=== PATIENT | male | born 1955 | race Hispanic/Latino ===

== ENCOUNTER 2019-11-14 00:01 | Inpatient (IN) | payer BC ==
[~2019-11-14] VITALS: Ht 177.8 cm; Wt 87.2 kg
[2019-11-14] VITALS (15 sets, daily range): BP systolic 93–168; BP diastolic 38–87
[2019-11-14] MEDS ORDERED: DOPAMINE HCL 400 MG/D5%-WATER 250 ML IV ONE (02:25)
[2019-11-14] MEDS ORDERED: DOPAMINE HCL 400 MG/D5%-WATER 250 ML IV PRN (02:30)
[2019-11-14] MEDS ORDERED: MORPHINE SULFATE 2 MG/ML 1ML SYG IVP PRN (03:00)
[2019-11-14] MEDS ORDERED: DEXTROSE 50%-WATER 50 ML DISP.SYRIN IV PRN ×2 (03:15→14:45)
[2019-11-14] MEDS ORDERED: GLUCAGON 1MG KIT 1 MG ML IM PRN ×2 (03:15→14:45)
[2019-11-14 03:41] LABS: BASOPHILS % (AUTO) 0.2 % (0.0-5.0); EOSINOPHILS % (AUTO) 0.2 % (0.0-8.0); LYMPHOCYTES % (AUTO) 7.1 % (21.0-51.0); MEAN CORPUSCULAR HEMOGLOBIN 33.5 pg (27.0-33.0); MEAN CORPUSCULAR HGB CONC 31.7 g/dL (32.0-36.0); MEAN CORPUSCULAR VOLUME 105.6 fL (79-99); MONOCYTES % (AUTO) 6.4 % (3.0-13.0); NEUTROPHILS % (AUTO) 85.5 % (40.0-77.0); NUCLEATED RED BLOOD CELLS 0.8 % (0.0-0.19); PLATELET COUNT (AUTO) 138 K/uL (130-400); RED BLOOD CELL COUNT(AUTO) 2.84 MIL/uL (4.50-6.20); RED CELL DISTRIBUTION WIDTH 14.6 % (11.0-15.5); WHITE BLOOD COUNT (AUTO) 8.4 K/uL (4.8-10.8)
[2019-11-14] MEDS ORDERED: HEPARIN 25000 UNITS/250 ML D5W 250 ML IV SCH (03:45)
[2019-11-14] MEDS ORDERED: AMLO2.5T2 PO (03:48)
[2019-11-14] MEDS ORDERED: METO-408 PO (03:48)
[2019-11-14] MEDS ORDERED: OMEG-125 PO (03:48)
[2019-11-14] MEDS ORDERED: SITA25TA5 PO (03:48)
[2019-11-14] MEDS ORDERED: PHOSLOC PO (03:48)
[2019-11-14 03:54] LABS: HEMOGLOBIN A1C 6.6 % (4.0-6.0)
[2019-11-14 03:55] LABS: INR 1.23 (0.85-1.15); PARTIAL THROMBOPLASTIN TIME 33.3 SEC (26.3-35.5); PROTHROMBIN TIME 13.2 SEC (9.6-11.6)
[2019-11-14 04:26] LABS: ALBUMIN 3.1 g/dL (3.5-5.0); BILIRUBIN,TOTAL 0.5 mg/dL (0.2-1.0)
[2019-11-14 04:34] LABS: CREATININE 9.9 mg/dL (0.5-1.5)
[2019-11-14 04:35] LABS: TROPONIN I 19.53 ng/mL (0.00-0.06)
[2019-11-14] MEDS: INSULIN HUMULIN R 100 UNIT/ML 3ML SQ SCH ×3 (06:14→21:00)
[2019-11-14] MEDS ORDERED: SODIUM POLYSTYRENE SULFONATE 15 GM/60 ML ML ONE (06:39)
[2019-11-14] MEDS ORDERED: SODIUM POLYSTYRENE SULFONATE 15 GM/60 ML ML RC SCH (06:45)
[2019-11-14] MEDS ORDERED: EPOETIN ALFA 10,000 UNIT/ML VIAL SQ SCH (08:15)
[2019-11-14] MEDS ORDERED: CALCIUM GLUCONATE 1 GM/10 ML VIAL IV SCH (08:15)
[2019-11-14] MEDS ORDERED: CALCIUM GLUCONATE 1 GM in SODIUM CHLORIDE 0.9% 50 ML IV SCH (08:30)
[2019-11-14 09:26] LABS: BILIRUBIN,DIRECT 0.2 mg/dL (0.0-0.3); BILIRUBIN,TOTAL 0.4 mg/dL (0.2-1.0); TOTAL PROTEIN, SERUM 6.6 g/dL (6.0-8.3)
[2019-11-14 09:46] LABS: % IRON SATURATION 41.1 % (30-44)
[2019-11-14] MEDS ORDERED: SODIUM CHLORIDE 0.9% 500ML 500 ML IV SCH (09:49)
[2019-11-14] MEDS: FOLIC ACID 1 MG TABLET PO SCH (10:42)
[2019-11-14] MEDS: FAMOTIDINE/PF 20 MG/2 ML VIAL IV SCH (10:42)
[2019-11-14] MEDS: THIAMINE HCL 100 MG TABLET PO SCH (10:42)
[2019-11-14 11:58] LABS: HEMATOCRIT 29.9 % (42-54); MEAN CORPUSCULAR HEMOGLOBIN 33.8 pg (27.0-33.0); MEAN CORPUSCULAR HGB CONC 32.1 g/dL (32.0-36.0); MEAN CORPUSCULAR VOLUME 105.3 fL (79-99); NUCLEATED RED BLOOD CELLS 0.7 % (0.0-0.19); RED BLOOD CELL COUNT(AUTO) 2.84 MIL/uL (4.50-6.20); RED CELL DISTRIBUTION WIDTH 14.6 % (11.0-15.5); WHITE BLOOD COUNT (AUTO) 8.7 K/uL (4.8-10.8)
[2019-11-14 12:11] LABS: CREATININE 7.7 mg/dL (0.5-1.5); POTASSIUM 4.2 mmol/L (3.5-5.1)
[2019-11-14 12:12] LABS: INR 1.18 (0.85-1.15); PARTIAL THROMBOPLASTIN TIME 28.8 SEC (26.3-35.5); PROTHROMBIN TIME 12.7 SEC (9.6-11.6)
--- NOTE | 2019-11-14 13:30 | NUR ---
PATIENT TO DESIGN DRAFTSMAN PATIENT STABLE ON DOPAMINE DRIP @ 2 MCG/KG/MIN WITH HR 38-40 AND BP STABLE 120'S. PATIENT AWAKE ALERT AND ORIENTED STATING NO LONGER FEELING NAUSEATED AT THIS TIME
[2019-11-14] MEDS ORDERED: HEPARIN SODIUM 1000UNIT/ML 10ML VIAL ONE (13:58)
[2019-11-14] MEDS ORDERED: LIDOCAINE HCL 2% 20ML ONE (13:58)
[2019-11-14] MEDS ORDERED: IOHEXOL 350 MG/ML 100ML INFUS..BTL IV ONE (13:58)
[2019-11-14] MEDS ORDERED: IOHEXOL-350 50ML VIAL IV ONE (13:58)
[2019-11-14] MEDS ORDERED: LIDOCAINE HCL 1% MDV 50ML VIAL ONE (14:41)
[2019-11-14] MEDS ORDERED: BUPIVACAINE/PF 0.25% 30ML VIAL IJ ONE (14:41)
[2019-11-14] MEDS ORDERED: VANCOMYCIN 1GM+NS 250ML 500 ML IV ONE (14:41)
[2019-11-14] MEDS ORDERED: MEPERIDINE-PF 50 MG/ML SYG ONE (14:42)
[2019-11-14] MEDS ORDERED: MIDAZOLAM HCL 1 MG/ML 2ML VIAL ONE ×2 (14:42→15:01)
[2019-11-14] MEDS ORDERED: ALTEPLASE 2 MG/VIAL IVCATH ONE (14:45)
[2019-11-14] MEDS ORDERED: IODIXANOL 320 MG/ML 100 ML VIAL ONE (15:02)
--- NOTE | 2019-11-14 15:44 | NUR ---
DEFERRING IA AT THIS TIME PATIENT TO CAR RENTAL AGENCY MANAGER, ON DOPA MINE DRIP. CM DEFERRED CALLING FAMILY FOR INTIAL ASSESSMENT WHILE PATINET CRITICALLY ILL, WILL DEFER UNTIL MORE STABLE, Addendum: 11/14/19 at 1545 by AUTUMN SMITH RN CM Amended: Links added.
--- NOTE | 2019-11-14 16:55 | NUR ---
PATIENT REMAINS IN LOCKSTITCH POCKET SETTER. PENDING REPORT AND RETURN OF PATIENT
[2019-11-14] MEDS ORDERED: TRAMADOL HCL 50 MG TABLET PO PRN (17:00)
[2019-11-14 21:02] LABS: APPEARANCE BODY FLUID SLIGHTLY CLOUDY (CLEAR); COLOR,BODY FLUID YELLOW (LT YELLOW); SPECIMENTYPE,BODY FLUID PLEURAL; TOTAL VOLUME,BODY FLUID 1221 mL
[2019-11-14 21:03] LABS: BODY FLUID WBC 44 /cu. mm.
[2019-11-14 21:04] LABS: BODY FLUID RBC 1510 /cu. mm.
[2019-11-14 22:20] LABS: BF LYMPHOCYTE 69 %; BF MONOCYTE 2 %
[2019-11-14] MEDS ORDERED: CALCIUM CHLORIDE 100 MG/ML 10 ML SYG IVP ONE (23:43)
[2019-11-14] MEDS ORDERED: ETOMIDATE 2 MG/ML 10 ML VIAL IVP ONE (23:43)
[2019-11-14] MEDS ORDERED: ROCURONIUM BROMIDE 10MG/1ML 5ML VL IV ONE (23:43)
[2019-11-14] MEDS ORDERED: EPINEPHRINE 0.1 MG/ML 10 ML SYG IVP ONE ×2 (23:43)
[2019-11-14] MEDS ORDERED: SODIUM BICARB 8.4% 50ML SYRINGE IVP ONE (23:43)
[2019-11-14] MEDS ORDERED: NOREPINEPHRINE BITARTRATE 1 MG/1 ML ML IV ONE (23:43)
[2019-11-15 03:00] VITALS: BP 157/72
[2019-11-15 04:35] LABS: HEMATOCRIT 27.4 % (42-54); MEAN CORPUSCULAR HEMOGLOBIN 33.7 pg (27.0-33.0); MEAN CORPUSCULAR HGB CONC 32.1 g/dL (32.0-36.0); NUCLEATED RED BLOOD CELLS 0.9 % (0.0-0.19); PLATELET COUNT (AUTO) 108 K/uL (130-400); RED BLOOD CELL COUNT(AUTO) 2.61 MIL/uL (4.50-6.20); RED CELL DISTRIBUTION WIDTH 14.4 % (11.0-15.5); WHITE BLOOD COUNT (AUTO) 5.8 K/uL (4.8-10.8)
[2019-11-15 04:54] LABS: LYMPHOCYTES % (MANUAL) 12 % (22-44); MAN.DIFF COMMENT-IMPRESSION MANUAL DIFFERENTIAL; MONOCYTES % (MANUAL) 12 % (2-9); PLATELET MORPHOLOGY COMMENT SLIGHTLY DECREASED; SEGMENTED NEUTROPHILS % 76 % (40-70)
[2019-11-15 05:39] LABS: PHOSPHORUS 4.1 mg/dL (2.5-4.9); POTASSIUM 4.4 mmol/L (3.5-5.1)
[2019-11-15 05:42] LABS: CREATININE 10.7 mg/dL (0.5-1.5)
[2019-11-15] MEDS: INSULIN HUMULIN R 100 UNIT/ML 3ML SQ SCH ×4 (06:14→21:00)
[2019-11-15 08:00] VITALS: BP 115/64
[2019-11-15 08:10] LABS: HEPATITIS Bs ANTIGEN SCREEN P Negative (Negative)
[2019-11-15] MEDS: THIAMINE HCL 100 MG TABLET PO SCH (09:00)
[2019-11-15] MEDS: ASPIRIN 81MG TAB.CHEW PO SCH (09:00)
[2019-11-15] MEDS: LOSARTAN 50 MG TABLET PO SCH (09:00)
[2019-11-15] MEDS: FAMOTIDINE/PF 20 MG/2 ML VIAL IV SCH (09:00)
[2019-11-15] MEDS: FOLIC ACID 1 MG TABLET PO SCH (09:00)
[2019-11-15] MEDS: ATORVASTATIN CALCIUM 40 MG TABLET PO SCH (09:00)
[2019-11-15] MEDS: METOPROLOL SUCCINATE 50 MG TAB.SR.24H PO SCH (09:00)
[2019-11-15 11:43] VITALS: BP 134/71
[2019-11-15 16:00] VITALS: BP 132/67
--- NOTE | 2019-11-15 18:38 | NUR ---
RIGHT FEMORAL TRIALYSIS CATHETER REMOVED ORDERED BY DR. JASSO. PATIENT TOLERATED PROCEDURE.
[2019-11-15 19:00] VITALS: BP 143/78
--- NOTE | 2019-11-15 21:00 | NUR ---
PT IS STABLE. AA03. HAS DIFFICULTY SEEING FROM RIGHT EYE. DIALYSIS PT. MONITORING BS LEVELS. PT ABLE TO AMBULATE.
[2019-11-15 23:00] VITALS: BP 129/65
[2019-11-16 03:00] VITALS: BP 142/73
[2019-11-16 04:42] LABS: BASOPHILS % (AUTO) 0.2 % (0.0-5.0); EOSINOPHILS % (AUTO) 2.2 % (0.0-8.0); HEMATOCRIT 23.9 % (42-54); LYMPHOCYTES % (AUTO) 13.9 % (21.0-51.0); MEAN CORPUSCULAR HEMOGLOBIN 32.6 pg (27.0-33.0); MEAN CORPUSCULAR HGB CONC 31.8 g/dL (32.0-36.0); MEAN CORPUSCULAR VOLUME 102.6 fL (79-99); MONOCYTES % (AUTO) 8.2 % (3.0-13.0); NEUTROPHILS % (AUTO) 74.8 % (40.0-77.0); NUCLEATED RED BLOOD CELLS 0.4 % (0.0-0.19); PLATELET COUNT (AUTO) 113 K/uL (130-400); RED BLOOD CELL COUNT(AUTO) 2.33 MIL/uL (4.50-6.20); RED CELL DISTRIBUTION WIDTH 14.6 % (11.0-15.5); WHITE BLOOD COUNT (AUTO) 5.5 K/uL (4.8-10.8)
[2019-11-16 04:50] LABS: POTASSIUM 4.1 mmol/L (3.5-5.1)
[2019-11-16 04:52] LABS: CREATININE 12.5 mg/dL (0.5-1.5)
[2019-11-16] MEDS: INSULIN HUMULIN R 100 UNIT/ML 3ML SQ SCH ×4 (06:58→20:53)
[2019-11-16 07:00] VITALS: BP_SYST 153; BP_SYST 171; BP_DIAS 66; BP_DIAS 81
--- NOTE | 2019-11-16 08:45 | NUR ---
AM ASSESSMENT PT LAYING IN BED, HOB ELEVATED 30 DEGREES, WATCHING TV. SPA SPEAKING. A/O X 3. NO SOB. NO DISTRESS NOTED. DENIES CHEST PAIN OR DISCOMFORT. DENIES PALPITATIONS. DENIES INCISIONAL PAIN. TELE: PACED. LT UPPER CHEST INCISION, TELFA & OPSITE. DRY & INTACT. NO DRAINAGE NOTED. SLING TO LT ARM. ARM PRECAUTIONS REINFORCED. DENIES N/V AND/OR DIARRHEA. HD TTS. RT AV-FISTULA, NO BRUIT/NO THRILL. NO HD ACCESS @ THIS TIME. PT TO HAVE DECLOT TO RT AV FISTULA TMRW. UP W/ASSISTANCE. INSTRUCTED TO CALL FOR ASSISTANCE. CALL VANI W/IN REACH.
[2019-11-16] MEDS ORDERED: FAMOTIDINE 20MG TAB 20 MG TAB PO SCH (09:45)
[2019-11-16] MEDS: ATORVASTATIN CALCIUM 40 MG TABLET PO SCH (10:21)
[2019-11-16] MEDS: ASPIRIN 81MG TAB.CHEW PO SCH (10:22)
[2019-11-16] MEDS: METOPROLOL SUCCINATE 50 MG TAB.SR.24H PO SCH (10:22)
[2019-11-16] MEDS: FOLIC ACID 1 MG TABLET PO SCH (10:24)
[2019-11-16] MEDS: LOSARTAN 50 MG TABLET PO SCH (10:24)
[2019-11-16] MEDS: THIAMINE HCL 100 MG TABLET PO SCH (10:24)
[2019-11-16 11:00] VITALS: BP 142/75
[2019-11-16] MEDS: FAMOTIDINE 20MG TAB 20 MG TAB PO SCH (13:00)
--- NOTE | 2019-11-16 14:46 | NUR ---
INITIAL MET W PATIENT AT BEDSIDE, STATES LIVES W SON, DAUGHTER IN LAW, SPOUSE, GOES TO HD CLINIC IN [place], BUT HE CANNOT REMEMBER NAME OF CLINIC; MD IS DR. BERTRAND, HAS BEEN ON HD X2 YEARS- NO DME, INDP OF [facility], DCP HOME, SON SAMUEL WHO PROVIDES ALL HIS TRANSPORT WILL CRIMPING MACHINE OPERATOR FOR METAL. Addendum: 11/16/19 at 1451 by AUTUMN SMITH RN CM Amended: Links added.
[2019-11-16 16:00] VITALS: BP 122/64
[2019-11-16 20:00] VITALS: BP 152/84
--- NOTE | 2019-11-16 21:00 | NUR ---
PT AICD DRESSING CHANGED, NO DISTRESS NOTED. ABLE TO AMBULATE. CONSENT FOR FISTULOGRAM WITH DECLOT IN CHART. PT AWARE OF PROCEDURE. LABS FOR THE AM.
[2019-11-17] VITALS (10 sets, daily range): BP systolic 75–147; BP diastolic 47–84
[2019-11-17 04:57] LABS: BASOPHILS % (AUTO) 0.4 % (0.0-5.0); HEMATOCRIT 22.8 % (42-54); MEAN CORPUSCULAR HEMOGLOBIN 33.3 pg (27.0-33.0); MEAN CORPUSCULAR HGB CONC 32.5 g/dL (32.0-36.0); MEAN CORPUSCULAR VOLUME 102.7 fL (79-99); MONOCYTES % (AUTO) 9.9 % (3.0-13.0); NEUTROPHILS % (AUTO) 69.1 % (40.0-77.0); PLATELET COUNT (AUTO) 114 K/uL (130-400); RED BLOOD CELL COUNT(AUTO) 2.22 MIL/uL (4.50-6.20); RED CELL DISTRIBUTION WIDTH 15.2 % (11.0-15.5); WHITE BLOOD COUNT (AUTO) 5.3 K/uL (4.8-10.8)
--- NOTE | 2019-11-17 05:00 | NUR ---
NEW IV STARTED TO LEFT FOREARM. BY YARA GAXIOLA. PREPPED FOR PROCEDURE TODAY, FISTULOGRAM WITH DECLOT. DIALYSIS PT.
[2019-11-17 05:12] LABS: INR 1.06 (0.85-1.15); PROTHROMBIN TIME 11.4 SEC (9.6-11.6)
[2019-11-17 05:21] LABS: ALBUMIN 2.3 g/dL (3.5-5.0); BILIRUBIN,TOTAL 0.4 mg/dL (0.2-1.0); POTASSIUM 4.5 mmol/L (3.5-5.1); TOTAL PROTEIN, SERUM 5.8 g/dL (6.0-8.3)
[2019-11-17] MEDS: INSULIN HUMULIN R 100 UNIT/ML 3ML SQ SCH ×4 (06:23→20:05)
--- NOTE | 2019-11-17 07:30 | NUR ---
AM ASSESSMENT PT SITTING IN CHAIR, WATCHING TV. A/O X 3. NO SOB. NO DISTRESS NOTED. DENIES CHEST PAIN OR DISCOMFORT. DENIES PALPITATIONS. DENIES INCISIONAL PAIN. TELE: PACED. LT UPPER CHEST DSG DRY & INTACT. NO DRAINAGE, NO HEMATOMA NOTED. NPO STATUS REINFORCED. PT TO HAVE DECLOT OF RT AV FISTULA. HD PLANNED FOR TODAY. UP W/ASSISTANCE. INSTRUCTED TO CALL FOR ASSISTANCE. CALL VANI W/IN REACH.
[2019-11-17] MEDS: FAMOTIDINE 20MG TAB 20 MG TAB PO SCH (09:00)
[2019-11-17] MEDS: THIAMINE HCL 100 MG TABLET PO SCH (09:00)
[2019-11-17] MEDS: ATORVASTATIN CALCIUM 40 MG TABLET PO SCH (09:00)
[2019-11-17] MEDS: ASPIRIN 81MG TAB.CHEW PO SCH (09:00)
[2019-11-17] MEDS: FOLIC ACID 1 MG TABLET PO SCH (09:00)
[2019-11-17] MEDS ORDERED: EPOETIN ALFA 10,000 UNIT/ML VIAL SQ SCH (09:45)
[2019-11-17] MEDS ORDERED: FENTANYL CITRATE PF 50 MCG/1 ML 2ML VIAL ONE (11:40)
[2019-11-17] MEDS ORDERED: IODIXANOL 320 MG/ML 100 ML VIAL ONE (11:40)
[2019-11-17] MEDS ORDERED: LIDOCAINE HCL 1% MDV 50ML VIAL ONE (11:40)
[2019-11-17] MEDS ORDERED: HEPARIN SODIUM 1000UNIT/ML 10ML VIAL ONE (11:40)
--- NOTE | 2019-11-17 13:13 | NUR ---
STATUS PT BACK FROM PROCUREMENT ANALYST VIA BED, S/P RT AV FISTULS DECLOT. (+) THRILL/(+) BRUIT. DSG DRY & INTACT. NO BLEEDING, NO DRAINAGE NOTED. DENIES INCISIONAL PAIN. PT MAY RESUME DIET. PT TO HAVE HD TODAY.
[2019-11-17] MEDS ORDERED: MIDODRINE HCL 5 MG TABLET PO SCH (14:45)
--- NOTE | 2019-11-17 14:45 | NUR ---
HYPOTENSION PT'S HYPOTENSIVE POST DCLOT OF RT AV FISTULA. BP 80s/60s. DR OWEN JASSO NOTIFIED BY HD NURSE, DELMI. ORDERS RECEIVED FOR MIDODRINE 10 MG PO ONCE. ORDER ENTERED. PT TO RECEIVE HD PLANNED & IF TOLERATED BY PT.
[2019-11-17] MEDS ORDERED: SODIUM CHLORIDE 0.9% 1000ML 1,000 ML IV PRN (15:30)
[2019-11-17] MEDS ORDERED: HEPARIN SODIUM 5000UNIT/ML 1ML VIAL IJ PRN ×2 (15:30)
[2019-11-17] MEDS ORDERED: NITROGLYCERIN 0.4 MG SL TAB SL PRN (15:30)
[2019-11-17] MEDS ORDERED: LIDOCAINE HCL-MPF 1% 2ML VIAL IJ PRN (15:30)
[2019-11-17] MEDS ORDERED: 0.9% SODIUM CHLORIDE 1000 ML IV BAG IV PRN (15:30)
[2019-11-17] MEDS ORDERED: ACETAMINOPHEN 325 MG TAB PO PRN (15:30)
[2019-11-17] MEDS: LOSARTAN 50 MG TABLET PO SCH (16:31)
[2019-11-17] MEDS: METOPROLOL SUCCINATE 50 MG TAB.SR.24H PO SCH (16:31)
[2019-11-17] MEDS ORDERED: ATORVASTATIN CALCIUM 40 MG TABLET PO SCH (21:00)
[2019-11-17] MEDS: ONDANSETRON HCL 4 MG/2 ML VIAL IV PRN (23:26)
[2019-11-18] VITALS (28 sets, daily range): BP systolic 60–112; BP diastolic 17–56
[2019-11-18 04:46] LABS: BASOPHILS % (AUTO) 0.2 % (0.0-5.0); EOSINOPHILS % (AUTO) 0.9 % (0.0-8.0); HEMATOCRIT 23.5 % (42-54); LYMPHOCYTES % (AUTO) 13.4 % (21.0-51.0); MEAN CORPUSCULAR HEMOGLOBIN 33.2 pg (27.0-33.0); MEAN CORPUSCULAR HGB CONC 31.9 g/dL (32.0-36.0); MONOCYTES % (AUTO) 10.9 % (3.0-13.0); NEUTROPHILS % (AUTO) 73.6 % (40.0-77.0); PLATELET COUNT (AUTO) 115 K/uL (130-400); RED BLOOD CELL COUNT(AUTO) 2.26 MIL/uL (4.50-6.20); RED CELL DISTRIBUTION WIDTH 15.6 % (11.0-15.5); WHITE BLOOD COUNT (AUTO) 5.8 K/uL (4.8-10.8)
[2019-11-18 05:12] LABS: ALBUMIN 2.5 g/dL (3.5-5.0); BILIRUBIN,TOTAL 0.5 mg/dL (0.2-1.0); POTASSIUM 4.4 mmol/L (3.5-5.1); TOTAL PROTEIN, SERUM 6.2 g/dL (6.0-8.3)
[2019-11-18 05:15] LABS: CREATININE 11.3 mg/dL (0.5-1.5)
[2019-11-18] MEDS: INSULIN HUMULIN R 100 UNIT/ML 3ML SQ SCH ×3 (06:18→16:30)
--- NOTE | 2019-11-18 08:25 | NUR ---
STATUS PT C/O OF NAUSEA. IV ZOFRAN GIVEN. V/S STABLE. PT TO RECEIVE HD TODAY.
[2019-11-18] MEDS: ONDANSETRON HCL 4 MG/2 ML VIAL IV PRN ×2 (08:28→15:54)
[2019-11-18] MEDS: LOSARTAN 50 MG TABLET PO SCH (09:00)
[2019-11-18] MEDS: METOPROLOL SUCCINATE 50 MG TAB.SR.24H PO SCH (09:00)
[2019-11-18] MEDS: THIAMINE HCL 100 MG TABLET PO SCH (09:00)
[2019-11-18] MEDS: ASPIRIN 81MG TAB.CHEW PO SCH (09:00)
[2019-11-18] MEDS: FAMOTIDINE 20MG TAB 20 MG TAB PO SCH (09:00)
[2019-11-18] MEDS: FOLIC ACID 1 MG TABLET PO SCH (09:00)
--- NOTE | 2019-11-18 09:00 | NUR ---
MD NOTIFICATION DR OWEN JASSO NOTIFIED OF PT'S HYPOTENSION PRIOR TO HD. ORDER FOR MIDODRINE 5 MG PO ONCE RECEIVED & GIVEN.
[2019-11-18] MEDS ORDERED: MIDODRINE HCL 5 MG TABLET PO SCH ×2 (09:35→11:30)
--- NOTE | 2019-11-18 11:05 | NUR ---
MD NOTIFICATION INFORMED BY HD NURSE, PT CONTINUES TO HAVE HYPOTENSION. DR Rafael JASSO NOTIFIED. ORDERS FOR EKG, TROPONIN & 2nd DOSE OF MIDODRINE 5 MG PO NOW RECEIVED. MIDODRINE PO GIVEN TO PT.
[2019-11-18] MEDS ORDERED: ALBUMIN (HUMAN) 25% 100 ML IV SCH (11:15)
[2019-11-18 12:00] LABS: TROPONIN I 4.78 ng/mL (0.00-0.06)
--- NOTE | 2019-11-18 12:07 | NUR ---
MD NOTIFICATION DR OWEN JASSO NOTIFIED PT CONTINUES TO BE HYPOTENSIVE. HD TO HELD FOR NOW. PT TO BE TRANSFERRED TO ICU.
--- NOTE | 2019-11-18 12:08 | NUR ---
MD NOTIFICATION DR FAGAN NOTIFIED & UPDATED OF PT'S CURRENT STATE OF HYPOTENSION & DR OWEN JASSO'S ORDERS. ORDERS RECEIVED & ENTERED. 2D BEAUTY CONSULTANT NOTIFIED STAT 2D ECHO HAS BEEN ORDERED.
--- NOTE | 2019-11-18 12:15 | NUR ---
MD NOTIFICATION DR PERES UPDATED ON PT'S STATUS & CURRENT PLAN OF CARE.
--- NOTE | 2019-11-18 12:55 | NUR ---
CARDIOLOGY CONSULT [place] BAI NOTIFIED OF RECONSULT [facility]. PT STATUS & PLAN OF CARE INFO GIVEN. ORDER FOR STAT CXR RECEIVED & ENTERED. INFORMED [place] BAI 2D ECHO CURRENTLY BEING DONE. [place] BAI TO NOTIFY DR Rolando DONATO OF CONSULT.
--- NOTE | 2019-11-18 13:07 | NUR ---
MD VISIT DR Rolando DONATO IN TO SEE PT. 2D ECHO JUST COMPLETED. DR Rolando DONATO REVIEWING PREVIOUS & CURRENT 2D ECHO. CXR BEING DONE @ THIS TIME. VENDING TECHNICIAN REPORT & FILMS REVIEWED BY .
--- NOTE | 2019-11-18 13:20 | NUR ---
MD VISIT ORDER RECEIVED FOR CT ANGIO OF CHEST. CONSENT FOR CT SCAN DONE @ THIS TIME. PT'S CURRENT IV ACCES 22G. IV INFILTRATED @ THIS TIME. PT ON LY HAS LT ARM AVAIL OR IV ACCESS. RT AV FISTULA, SUNNY. MULTIPLE ATTEMPT @ IV 20G MADE. VEINS LOCATED, BLOOD RETURN PRESENT, WHEN CATHETER ADVANCE VEIN BLOWS. PT STATES HIS VEINS ARE HARD TO GET AND ALWAYS GO BAD. CT SCAN STAFF NOTIFIED CONSENT OR CT ANGIO OBTAINED, BUT NO IV ACCES AVAIL @ THIS TIME FOR PROCEDURE. IV INSERTION BEING ATTEMPTED.
[2019-11-18] MEDS ORDERED: IOHEXOL-350 75 ML VIAL IV ONE (15:37)
--- NOTE | 2019-11-18 15:37 | NUR ---
IV INSERTION 20G LT INNER FA INSERTED BY [place] DUCKWORTH RN. (+) BLOOD RETURN. CT SCAN NOTIFIED IV ACCESS IN PLACE FOR CT SCAN.
--- NOTE | 2019-11-18 16:20 | NUR ---
CT ANGIO PT TAKEN TO CT ANGIO VIA BED BY STAFF X 2 (TRANSPORT & RN). PT TRANSFERRED TO CT SCAN BED. WHEN CHECKING IV ACCESS FOR PATENCY, IV ACCES INFILTRATED. PT TO RETURN TO 428 & MD NOTIFIED OF CURRENT STATUS.
--- NOTE | 2019-11-18 16:35 | NUR ---
MD NOTIFICATION DR FAGAN NOTIFIED OF PT'S CURRENT STATUS. PT NOW EXPERIENCING CHEST PAIN. MD INFORMED NO IV ACCES AVAIL & PENDING CT ANGIO OF CHEST TO R/U PE. MD TO REVIEW PT'S CHART AND COME UP TO PT'S ROOM. ORDER RECEIVED FOR CENTRAL JAZMINE INSERTION. ORDER ENTERED. CONSENT OBTAINED FROM PT. SUPPLIES GATHERED FOR CENTRAL LINE INSERTION.
[2019-11-18] MEDS ORDERED: MIDAZOLAM HCL 1 MG/ML 2ML VIAL IVP ONE (17:30)
[2019-11-18] MEDS ORDERED: FENTANYL CITRATE PF 50 MCG/1 ML 2ML VIAL IVP ONE (17:30)
--- NOTE | 2019-11-18 17:40 | NUR ---
CENTRAL LINE DR FAGAN @ BEDSIDE. REQUESTING FENTANYL IVP & VERSED IVP. ORDERS ENTERED & DISPENSED, CURRENTLY @ BEDSIDE. REMINDED MD, PT CURRENTLY HAS NO IV ACCESS. MD ATTEMPTED TO INSERT CENTRAL LINE. 1st ATTEMPT @ RT IJ. UNABLE TO INSET CENTRAL LINE DUE TO STENOSIS. LT IJ PREPPED ATTEMPT MADE TO INSERT CENTRAL LINE. MD ONLY ABLE TO INSERT CATHETER. PER MD CATHETER TO BE KEPT IN PLACE & USED TO HAVE CT ANGIO OF CHEST DONE. CATHETER TO BE USED FOR IV ACCESS TONIGHT. ORDER RECEIVED & ENTERED TO HAVE PICC LINE INSERTED TOMORROW. DELI WORKER NOTIFIED. CT SCAN NOTIFIED PT HAS IV ACCES AND CT ANGIO OF CHEST TO BE DONE NOW.
[2019-11-18] MEDS ORDERED: LIDOCAINE HCL 1% 20 ML VIAL INJ SCH (18:04)
--- NOTE | 2019-11-18 18:20 | NUR ---
CT ANGIO CHEST PT TAKEN TO HAVE CT ANGIO OF CHEST DONE. CT ANGIO OF CHEST PERFORMED & BE READ BY RADIOLOGIST. PT TOLERATED CT SCAN. PT RESTLESS, C/O CHEST PAIN, AND COUGHING. PT CURRENTLY ON O2 N @ 2L. PT TRANSFERRED BACK TO RM 428. NOTIFIED OF PT'S STATUS.
--- NOTE | 2019-11-18 19:05 | NUR ---
CT ANGIO RESULTS NOTIFIED BY CT SCAN STAFF CT ANGIO RESULTS. PT (+) FOR PULMONARY EMBOLI. DR FAGAN NOTIFIED OF CT ANGIO CHEST RESULTS.
--- NOTE | 2019-11-18 19:38 | NUR ---
MD NOTIFICATION CALL BACK RECEIVED FROM DR FAGAN. ORDER FOR HEPARIN GTT RECEIVED. PT CARE ALREADY ENDORSED TO Oscar WEINSTEIN RN. INFORMED RN OF NEW ORDERS GIVEN BY DR FAGAN.
--- NOTE | 2019-11-18 20:15 | NUR ---
Transfer to ICU Patient transfer to ICU, report given to Jas ICU nurse. Patient transfer via stretcher with monitor and 2 nurses. Vitals BP93/53, HR 60, SPO2 97%.
--- NOTE | 2019-11-18 20:40 | NUR ---
PT RECEIVED FROM 4TH FLOOR DUE TO HYPOTENSION AND CT RESULTS. PT IS RESTLESS ,DIAPHORETIC, WITH SYSTOLIC BP IN 70'S AND NO IV ACCESS. DR. FAGAN NOTIFIED OF PATIENT'S CONDITION. INFORMED PICC LINE NURSE WAS CALLED AND ER WAS NOTIFIED FOR IO ACCESS. PT BECOMES UNRESPONSIVE WITH AGONAL BREATHING. CODE STROKE AND CODE BLUE INITIATED. DR. FAGAN AWARE.
[2019-11-18 21:23] LABS: ABG BASE EXCESS -9.5 mmol/L (-2.0-3.0); ABG HCO3 15.3 mmol/L (21.0-28.0); ABG OXYGEN SATURATION 93.3 % (95.0-99.0); ABG PCO2 30 mmHg (35-48)
[2019-11-18] MEDS ORDERED: NOREPINEPHRINE 4MG/NS 250ML 250 ML IV ONE (21:25)
[2019-11-18 22:11] LABS: ABG BASE EXCESS -18.6 mmol/L (-2.0-3.0); ABG HCO3 10.2 mmol/L (21.0-28.0); ABG OXYGEN SATURATION 96.4 % (95.0-99.0); ABG PCO2 36 mmHg (35-48)
[2019-11-18] MEDS ORDERED: EPINEPHRINE 0.1 MG/ML 10 ML SYG ONE (22:11)
[2019-11-18 22:21] LABS: HEMATOCRIT 28.6 % (42-54); MEAN CORPUSCULAR HEMOGLOBIN 33.3 pg (27.0-33.0); MEAN CORPUSCULAR VOLUME 114.9 fL (79-99); NUCLEATED RED BLOOD CELLS 0.9 % (0.0-0.19); RED BLOOD CELL COUNT(AUTO) 2.49 MIL/uL (4.50-6.20); RED CELL DISTRIBUTION WIDTH 16.2 % (11.0-15.5); WHITE BLOOD COUNT (AUTO) 13.7 K/uL (4.8-10.8)
[2019-11-18] MEDS ORDERED: SODIUM BICARB 50MEQ 50ML VIAL ONE (22:52)
[2019-11-18 22:56] LABS: ABG BASE EXCESS -15.5 mmol/L (-2.0-3.0); ABG HCO3 14.8 mmol/L (21.0-28.0); ABG PCO2 63 mmHg (35-48)
[2019-11-18 23:04] LABS: TROPONIN I 5.29 ng/mL (0.00-0.06)
[2019-11-18] MEDS ORDERED: EPINEPHRINE 1 MG/ML 30ML VIAL IJ ONE (23:05)
== END 2019-11-18 23:44 | disposition expired | DRG 242 ==
LOC: DAHIP 01:50 → 2BH 11:47 → DAHIP 11:49 → 4DH 19:30 → DAHIP 11-18 20:54
PROVIDERS: ADMIT Internal Medicine; ATTEND Internal Medicine
PROC: 4A023N7 Measurement of Cardiac Sampling and Pressure, Left Heart, Percutaneous Approach (ICD-10-PCS; principal; 2019-11-14)
PROC: B2111ZZ Fluoroscopy of Multiple Coronary Arteries using Low Osmolar Contrast (ICD-10-PCS; 2019-11-14)
PROC: 0JH607Z Insertion of Cardiac Resynchronization Pacemaker Pulse Generator into Chest Subcutaneous Tissue and Fascia, Open Approach (ICD-10-PCS; 2019-11-14)
PROC: 02H63JZ Insertion of Pacemaker Lead into Right Atrium, Percutaneous Approach (ICD-10-PCS; 2019-11-14)
PROC: 03CY3ZZ Extirpation of Matter from Upper Artery, Percutaneous Approach (ICD-10-PCS; 2019-11-14)
PROC: 027V3ZZ Dilation of Superior Vena Cava, Percutaneous Approach (ICD-10-PCS; 2019-11-14)
PROC: 057B3ZZ Dilation of Right Basilic Vein, Percutaneous Approach (ICD-10-PCS; 2019-11-14)
PROC: 057D3ZZ Dilation of Right Cephalic Vein, Percutaneous Approach (ICD-10-PCS; 2019-11-14)
PROC: 02HK3JZ Insertion of Pacemaker Lead into Right Ventricle, Percutaneous Approach (ICD-10-PCS; 2019-11-14)
PROC: B51V1ZZ Fluoroscopy of Other Veins using Low Osmolar Contrast (ICD-10-PCS; 2019-11-14)
PROC: B2151ZZ Fluoroscopy of Left Heart using Low Osmolar Contrast (ICD-10-PCS; 2019-11-14)
PROC: 5A1D70Z Performance of Urinary Filtration, Intermittent, Less than 6 Hours Per Day (ICD-10-PCS; 2019-11-14)
PROC: 0W993ZZ Drainage of Right Pleural Cavity, Percutaneous Approach (ICD-10-PCS; 2019-11-14)
PROC: 3E03317 Introduction of Other Thrombolytic into Peripheral Vein, Percutaneous Approach (ICD-10-PCS; 2019-11-14)
PROC: 5A1D70Z Performance of Urinary Filtration, Intermittent, Less than 6 Hours Per Day (ICD-10-PCS; 2019-11-17)
PROC: 5A12012 Performance of Cardiac Output, Single, Manual (ICD-10-PCS; 2019-11-18)
PROC: 5A12012 Performance of Cardiac Output, Single, Manual (ICD-10-PCS; 2019-11-18)
PROC: 5A1935Z Respiratory Ventilation, Less than 24 Consecutive Hours (ICD-10-PCS; 2019-11-18)
PROC: 0BH17EZ Insertion of Endotracheal Airway into Trachea, Via Natural or Artificial Opening (ICD-10-PCS; 2019-11-18)
DX: I44.2 Atrioventricular block, complete (principal); N18.6 End stage renal disease; I21.4 Non-ST elevation (NSTEMI) myocardial infarction; T82.898A Other specified complication of vascular prosthetic devices, implants and grafts, initial encounter; J90 Pleural effusion, not elsewhere classified; I12.0 Hypertensive chronic kidney disease with stage 5 chronic kidney disease or end stage renal disease; R57.0 Cardiogenic shock; H54.61 Unqualified visual loss, right eye, normal vision left eye; M19.90 Unspecified osteoarthritis, unspecified site; D64.9 Anemia, unspecified; E11.22 Type 2 diabetes mellitus with diabetic chronic kidney disease; E11.319 Type 2 diabetes mellitus with unspecified diabetic retinopathy without macular edema; E11.65 Type 2 diabetes mellitus with hyperglycemia; E87.5 Hyperkalemia; H54.62 Unqualified visual loss, left eye, normal vision right eye; I25.10 Atherosclerotic heart disease of native coronary artery without angina pectoris; K75.89 Other specified inflammatory liver diseases; Y84.1 Kidney dialysis as the cause of abnormal reaction of the patient, or of later complication, without mention of misadventure at the time of the procedure; Y92.89 Other specified places as the place of occurrence of the external cause; Z88.0 Allergy status to penicillin; Z99.2 Dependence on renal dialysis; Z87.891 Personal history of nicotine dependence; Z83.3 Family history of diabetes mellitus; Z82.49 Family history of ischemic heart disease and other diseases of the circulatory system
CPT/HCPCS: 31500; 32554; 33208; 33225; 36415; 36600; 36905; 36907; 71045; 71275; 76705; 80048; 80053; 80061; 80076; 82435; 82550; 82728; 82803; 82945; 82947; 82948; 83036; 83540; 83550; 83605; 83615; 83874; 83880; 84100; 84132; 84157; 84295; 84484; 85018; 85025; 85027; 85610; 85730; 86701; 86704; 86706; 87071; 87116; 87205; 87206; 87340; 87390; 87520; 89051; 90935; 92950; 93005; 93306; 93458; 94002; 99156; 99157; C1725; C1729; C1751; C1757; C1760; C1769; C1894; G0378; J0171; J0610; J0885; J1265; J1644; J1815; J2175; J2250; J2405; J2997; J3010; J3370; J3490; Q9967